=== PATIENT | male | born 1970 | race Two or more races ===

== ENCOUNTER 2019-04-04 06:31 | Day surgery (SDC) | payer OTHER ==
[~2019-04-04] VITALS: Ht 195.6 cm; Wt 140.6 kg
[~2019-04-04 06:31] MED LIST: ALL10TAB29 PO; CLON0.12 PO; LEVO100T5 PO; SERT-138 PO
[2019-04-04] MEDS ORDERED: PROPOFOL 200 MG/20 ML VIAL As Ordered ONE ×2 (07:14→07:44)
[2019-04-04] MEDS ORDERED: LIDOCAINE 2% INJ 100 MG/5 ML SDV (FOR ANES.) As Ordered ONE (07:14)
[2019-04-04] MEDS ORDERED: NS 1,000 ML IV ONE (07:15)
--- NOTE | 2019-04-04 08:00 | ROOR ---
Patient Name: Roscoe Alberts Procedure Date: 04/04/2019 7:35 AM Date of : 1970 Age: 49 Room: [facility] Gender: Male Note Status: Finalized Procedure: Total Colonoscopy to Cecum Indications: Colon cancer screening in patient at increased risk: Family history of 1st-degree relative with colon polyps Providers: Pablo Douglas MD Referring MD: Hoang Vora MD Requesting Provider: Medicines: Monitored Anesthesia Care Complications: No immediate complications. Procedure: Pre-Anesthesia Assessment: - The heart rate, respiratory rate, oxygen saturations, blood pressure, adequacy of pulmonary ventilation, and response to care were monitored throughout the procedure. The Colonoscope was introduced through the anus and advanced to the cecum, identified by appendiceal orifice and ileocecal valve. The colonoscopy was performed without difficulty. The patient tolerated the procedure well. The quality of the bowel preparation was good. Findings: The perianal and digital rectal examinations were normal. Non-bleeding internal hemorrhoids were found during retroflexion. The hemorrhoids were small and Grade I (internal hemorrhoids that do not prolapse). No other significant abnormalities were identified in a careful examination of the remainder of the colon. The exam was otherwise without abnormality on direct and retroflexion views. Impression: - Non-bleeding internal hemorrhoids. - The examination was otherwise normal on direct and retroflexion views. - No specimens collected. - The exam was otherwise normal to the cecum. Recommendation: - Patient has a contact number available for emergencies. The signs and symptoms of potential delayed complications were discussed with the patient. Return to normal activities tomorrow. Written discharge instructions were provided to the patient. - High fiber diet. - Discharge patient to home. - Continue present medications. - Repeat colonoscopy in 5 years for screening purposes. - Return to referring physician. - The findings and recommendations were discussed with the patient's family. Pablo Douglas MD Pablo Douglas MD 04/04/2019 8:00:01 AM Electronically signed by Pablo Douglas MD Number of Addenda: 0 Note Initiated On: 04/04/2019 7:35 AM Estimated Blood Loss: Estimated blood loss: none.
[2019-04-04 08:15] VITALS: BP 127/65
== END 2019-04-04 08:29 | disposition home or self-care (01) ==
LOC: M OPP 06:31
PROVIDERS: ATTEND Internal Medicine Gastroenterology
DX: Z12.11 Encounter for screening for malignant neoplasm of colon (principal); Z83.71 Family history of colonic polyps; K64.0 First degree hemorrhoids; Z79.899 Other long term (current) drug therapy; Z88.8 Allergy status to other drugs, medicaments and biological substances

== ENCOUNTER → 2020-03-03 | Outpatient (CLI) | payer SELFPAY ==
[~2020-03-03] MED LIST changes: -ALL10TAB29 PO; +CETI-24 PO
== END ==
LOC: M LABSMTC 10:21
PROVIDERS: ATTEND Pediatrics
DX: Z20.828 Contact with and (suspected) exposure to other viral communicable diseases (principal)

== ENCOUNTER → 2020-09-10 | Outpatient (REF) | payer OTHER | LOC: M LAB REF 15:04 | PROVIDERS: ATTEND Podiatrist | DX: L03.039 Cellulitis of unspecified toe (principal); M79.671 Pain in right foot ==

== ENCOUNTER → 2021-03-02 | Outpatient (CLI) | payer OTHER ==
[~2021-03-02] MED LIST changes: +LAMO100T80 PO; +SERT50TA29 PO
== END ==
LOC: M LABSMTC 09:37
PROVIDERS: ATTEND Anesthesiology
DX: Z01.818 Encounter for other preprocedural examination (principal); Z11.52 Encounter for screening for COVID-19

== ENCOUNTER 2021-03-06 06:03 | Day surgery (SDC) | payer OTHER ==
[~2021-03-06] VITALS: Ht 195.6 cm; Wt 99.7 kg
[~2021-03-06 06:03] MED LIST changes: +LR 1,000 ML IV ONE; +ceFAZolin SOD 2 GM in IV 1 EA IV ONE
[2021-03-06] MEDS ORDERED: MIDAZOLAM INJ 2MG/2ML VIAL (J2250 PER 1MG) As Ordered ONE (06:46)
[2021-03-06] MEDS ORDERED: fentaNYL 100 MCG/2 ML INJECTION As Ordered ONE (06:47)
[2021-03-06] MEDS ORDERED: ONDANSETRON 4MG/2ML VIAL As Ordered ONE (06:47)
[2021-03-06] MEDS ORDERED: LIDOCAINE 2% INJ 100 MG/5 ML SYRINGE As Ordered ONE (06:47)
[2021-03-06] MEDS ORDERED: propofoL 200 MG/20 ML VIAL As Ordered ONE (06:47)
[2021-03-06] MEDS ORDERED: ROCURONIUM BROMIDE 50 MG/5 ML VIAL As Ordered ONE (06:51)
[2021-03-06] MEDS ORDERED: GENTAMICIN SULF 80MG/2ML VIAL As Ordered ONE (07:14)
[2021-03-06] MEDS ORDERED: dexameTHASONE 4 MG/ML 1ML VIAL (J1100 PER 1MG) As Ordered ONE (07:15)
[2021-03-06] MEDS ORDERED: LIDOCAINE 2% MDV 20ML VIAL As Ordered ONE (07:15)
[2021-03-06] MEDS ORDERED: BUPIVACAINE HCL 0.5% 30 ML VIAL As Ordered ONE (07:15)
[2021-03-06] MEDS ORDERED: ACETAMINOPHEN 1000MG 100ML IV BTL (OFIRMEV) (J0131 PER 10MG) As Ordered ONE (08:13)
[2021-03-06 08:45] VITALS: BP 99/63
[2021-03-06] MEDS ORDERED: oxyCODONE 5MG TAB PO PRN (08:50)
[2021-03-06] MEDS ORDERED: MIDAZOLAM 10MG/5ML SYRUP PO PRN (08:55)
== END 2021-03-06 09:10 | disposition home or self-care (01) ==
LOC: M SDC 06:03
PROVIDERS: ATTEND Podiatrist
DX: M20.42 Other hammer toe(s) (acquired), left foot (principal); M20.41 Other hammer toe(s) (acquired), right foot; L97.511 Non-pressure chronic ulcer of other part of right foot limited to breakdown of skin
CPT/HCPCS: 28825; 73630; 76000; 88304; 88311; J0131; J0690; J1580; J2250; J2405

== ENCOUNTER → 2023-06-02 | Outpatient (CLI) | payer OTHER ==
[~2023-06-02] MED LIST changes: -LR 1,000 ML IV ONE; -ceFAZolin SOD 2 GM in IV 1 EA IV ONE
== END ==
LOC: M RAD 10:30
PROVIDERS: ATTEND Nurse Practitioner Family
DX: K46.9 Unspecified abdominal hernia without obstruction or gangrene (principal)

== ENCOUNTER 2024-02-29 07:10 | Day surgery (SDC) | payer OTHER ==
[~2024-02-29] VITALS: Ht 193 cm; Wt 117.8 kg
[~2024-02-29 07:10] MED LIST changes: +BUSP10TA PO; +IBUP-351 PO; +THERTAB52 PO
[2024-02-29] MEDS ORDERED: propofoL 200 MG/20 ML VIAL As Ordered ONE (08:25)
[2024-02-29 08:47] VITALS: TEMP 97.4
[2024-02-29 09:02] VITALS: BP 103/55; O2SAT 95
== END 2024-02-29 09:20 | disposition home or self-care (01) ==
LOC: M OPP 07:10
PROVIDERS: ATTEND Internal Medicine Gastroenterology
DX: Z12.11 Encounter for screening for malignant neoplasm of colon (principal); K64.0 First degree hemorrhoids; K58.9 Irritable bowel syndrome, unspecified; E06.3 Autoimmune thyroiditis; Z83.719 Family history of colon polyps, unspecified; Z79.890 Hormone replacement therapy; Z79.899 Other long term (current) drug therapy; Z90.89 Acquired absence of other organs

== ENCOUNTER 2025-01-20 13:21 | Emergency (ER) | payer OTHER ==
[~2025-01-20] VITALS: Ht 193 cm; Wt 120.6 kg
[2025-01-20] MEDS ORDERED: ZOLO100T (13:32)
[2025-01-20] MEDS: LIDOCAINE 5% PATCH TD ONE (15:16)
[2025-01-20] MEDS ORDERED: LIDO1ADH93 TD (18:22)
[2025-01-20] MEDS ORDERED: MEDR4PAK PO (18:22)
[2025-01-20 18:24] VITALS: BP 142/86; TEMP 97.9; O2SAT 98
[2025-01-20] MEDS ORDERED: METH-1164 PO (18:24)
== END 2025-01-20 18:43 | disposition home or self-care (01) ==
LOC: M ED 13:21
DX: M47.26 Other spondylosis with radiculopathy, lumbar region (principal); F32.A Depression, unspecified; F41.0 Panic disorder [episodic paroxysmal anxiety]; F42.9 Obsessive-compulsive disorder, unspecified; E06.3 Autoimmune thyroiditis; Z79.899 Other long term (current) drug therapy; Z88.8 Allergy status to other drugs, medicaments and biological substances
CPT/HCPCS: 72131; 96372; 99283; J2919